=== PATIENT | male | born 1990 ===

== ENCOUNTER 2018-05-07 13:08 | Emergency (ER) | payer MEDICAID ==
[2018-05-07 13:14] VITALS: BP 118/72; PULSE 91; RESP 20; TEMP 99.3; O2SAT 97; BMI 23.6
--- NOTE | 2018-05-07 13:32 | C.PDOC ---
History Of Present Illness 27-year-old male presents to the ED complaining of upper back pain since this morning. States he stood up out of bed and felt a sudden, sharp pain between his shoulder blades. Pain worsens with movement and deep inspiration. He describes feeling tightness in the area. No recent fall, blunt trauma, or heavy lifting. Otherwise he denies any cough, congestion, shortness of breath, fever, or other URI symptoms. Time Seen by Provider: 05/07/18 13:19 Chief Complaint (Nursing): Back Pain History Per: Patient History/Exam Limitations: no limitations Onset/Duration Of Symptoms: Hrs Current Symptoms Are (Timing): Still Present Exacerbating Factor(s): Movement Past Medical History Reviewed: Historical Data, Nursing Documentation, Vital Signs Vital Signs: Last Vital Signs Temp 99.3 F 05/07/18 13:13 Pulse 91 H 05/07/18 13:13 Resp 20 05/07/18 13:13 BP 118/72 05/07/18 13:13 Pulse Ox 97 05/07/18 14:25 - Medical History PMH: Anxiety Family History: States: Unknown Family Hx - Social History Hx Tobacco Use: No Hx Alcohol Use: No Hx Substance Use: No - Immunization History Hx Tetanus Toxoid Vaccination: No Hx Influenza Vaccination: No Hx Pneumococcal Vaccination: No Review Of Systems Except As Marked, All Systems Reviewed And Found Negative. Constitutional: Negative for: Fever, Chills ENT: Negative for: Nose Congestion Cardiovascular: Negative for: Chest Pain Respiratory: Negative for: Cough, Shortness of Breath Musculoskeletal: Positive for: Back Pain Neurological: Negative for: Weakness, Numbness Physical Exam - Physical Exam Appears: Non-toxic, Other (Appears uncomfortable) Skin: Warm, Dry, No Rash Head: Atraumatic, Normacephalic Eye(s): bilateral: Normal Inspection Oral Mucosa: Moist Neck: Normal ROM Chest: Symmetrical, Tenderness (Mild tenderness to mid sternum) Cardiovascular: Rhythm Regular, No Murmur Respiratory: No Accessory Muscle Use, No Rhonchi, No Wheezing, Other (shallow breath sounds, equal bilaterally) Back: Normal Inspection, No Vertebral Tenderness, No Muscle Spasm, No Paraspinal Tenderness Extremity: Normal ROM, No Deformity, No Swelling Neurological/Psych: Oriented x3, Normal Speech Gait: Steady ED Course And Treatment O2 Sat by Pulse Oximetry: 97 (RA) Pulse Ox Interpretation: Normal - Radiology CXR: Viewed By Me, Read By Radiologist CXR Interpretation: Yes: No Acute Disease Medical Decision Making Medical Decision Making: Initial Plan: * Chest X-Ray * Toradol 30 mg IM Progress, Reassess and Dispo: CXR shows no acute disease. Patient remained afebrile alert and oriented with stable vital signs during ER evaluation. 2:00pm On re-examination, patient continues to complaint of pain. Treated with 5 mg Valium PO. On re-examination, patient is resting comfortably in no acute distress. Patient reports improvement of symptoms. Patient feels comfortable going home and will be discharged. Patient given follow up instructions. Instructed to return to ER if symptoms worsen or new symptoms arise. Disposition Counseled Patient/Family Regarding: Studies Performed, Diagnosis, Need For Followup, Rx Given - Disposition Referrals: Shaik Donohue MD [Staff Provider] - Disposition: HOME/ ROUTINE Disposition Time: 14:21 Condition: GOOD Additional Instructions: Follow up with your primary medical doctor or clinic in 2-5 days for further evaluation. Take medications as prescribed. Return to the emergency department at any time if symptoms persist or worsen. Prescriptions: Ibuprofen [Motrin] 600 mg PO Q8 #30 tab Instructions: Upper Back Pain (DC) Forms: [employer] (Setswana) - POA Present On Arrival: None - Clinical Impression Clinical Impression: Thoracic back pain - PA / [employer] / Resident Statement MD/DO has reviewed & agrees with the documentation as recorded. - Scribe Statement The provider has reviewed the documentation as recorded by the Scribe (Juliana Alfaro) All medical record entries made by the Scribe were at my direction and personally dictated by me. I have reviewed the chart and agree that the record accurately reflects my personal performance of the history, physical exam, medical decision making, and the department course for this patient. I have also personally directed, reviewed, and agree with the discharge instructions and disposition.
--- NOTE | 2018-05-07 14:05 | RAD ---
Date of service: 05/07/2018 HISTORY: midback pain COMPARISON: Comparison chest 06/22/2015 TECHNIQUE: Chest PA and lateral FINDINGS: LUNGS: No active pulmonary disease. PLEURA: No significant pleural effusion identified. No pneumothorax apparent. CARDIOVASCULAR: Normal. OSSEOUS STRUCTURES: No significant abnormalities. VISUALIZED UPPER ABDOMEN: Normal. OTHER FINDINGS: None. IMPRESSION: No active disease.
== END 2018-05-07 14:29 | disposition home or self-care (01) ==
LOC: C.ER 13:08
DX: M54.6 Pain in thoracic spine (principal)
CPT/HCPCS: 71046; 96372; 99283; J1885